=== PATIENT | male | born 1980 | race American Indian/Alaskan Native ===

== ENCOUNTER 2017-12-16 08:49 | Day surgery (SDC) | payer MEDICAID ==
[2017-12-16] MEDS ORDERED: MARCAINE 0.5% INFILTRATI ONE (10:20)
[2017-12-16] MEDS ORDERED: XYLOCAINE 1%/ EPI 1:100,000 INFILTRATI ONE (10:20)
[2017-12-16] MEDS ORDERED: DILAUDID IV PRN (10:26)
[2017-12-16] MEDS ORDERED: TORADOL IV PRN (10:26)
[2017-12-16] MEDS ORDERED: NARCAN 0.4 MG/1 ML IV PRN (10:26)
[2017-12-16] MEDS ORDERED: DEMEROL IV PRN (10:26)
[2017-12-16] MEDS ORDERED: PERCOCET 5/325 PO PRN (10:26)
[2017-12-16] MEDS ORDERED: ZOFRAN IV PRN (10:26)
--- NOTE | 2017-12-16 10:35 | Anesthesia Day of Surgery ---
Anesthesia Day of Surgery - Day of Surgery Patient Examined: Yes Patient H&P Reviewed: Yes Patient is NPO: Yes
--- NOTE | 2017-12-16 10:35 | Anesthesia Consultation ---
Anesthesia Consult and Med Hx Date of service: 12/16/17 - Airway Anesthetic Teeth Evaluation: Poor (missing several teeth), Chipped, Caps, Crowns ROM Head & Neck: Adequate Mental/Hyoid Distance: Adequate Mallampati Class: Class II Intubation Access Assessment: Probably Good - Pulmonary Exam CTA: Yes - Cardiac Exam Cardiac Exam: RRR - Pre-Operative Health Status ASA Pre-Surgery Classification: ASA3 Proposed Anesthetic Plan: General - Pulmonary Hx Smoking: Yes (marijuana) Hx Asthma: No - Cardiovascular System Hx Hypertension: Yes - Other Systems Hx Alcohol Use: Yes (occasional) Hx Substance Use: Yes (marijuana)
[2017-12-16] MEDS ORDERED: LACTATED RINGERS 1,000 ML IV SCH ×2 (11:00)
[2017-12-16] MEDS ORDERED: ANCEF/STERILE WATER 2 GM/20 ML IV NR (11:00)
[2017-12-16] MEDS ORDERED: DIPRIVAN 10 MG/ML IV ONE (11:13)
[2017-12-16] MEDS ORDERED: DECADRON ONE (11:14)
[2017-12-16] MEDS ORDERED: XYLOCAINE MPF 2% ONE (11:14)
[2017-12-16] MEDS ORDERED: ZOFRAN ONE (11:14)
[2017-12-16] MEDS ORDERED: DILAUDID ONE (11:15)
[2017-12-16] MEDS ORDERED: NACL 0.9% 1000 ML 1,000 ML IV SCH (11:30)
[2017-12-16 11:33] VITALS: BP 92/49
[2017-12-16 11:38] LABS: Calcium 6.9 mg/dL (8.4-10.2)
== END 2017-12-16 14:00 | disposition home or self-care (01) ==
LOC: OR 08:49
PROVIDERS: ATTEND Plastic Surgery
DX: I12.0 Hypertensive chronic kidney disease with stage 5 chronic kidney disease or end stage renal disease (principal); N18.6 End stage renal disease; G47.30 Sleep apnea, unspecified; K21.9 Gastro-esophageal reflux disease without esophagitis; D64.9 Anemia, unspecified; K58.9 Irritable bowel syndrome, unspecified; Z79.899 Other long term (current) drug therapy; Z99.2 Dependence on renal dialysis; Z72.89 Other problems related to lifestyle; Z88.5 Allergy status to narcotic agent; Z88.6 Allergy status to analgesic agent; Z91.041 Radiographic dye allergy status; Z87.891 Personal history of nicotine dependence; Z90.49 Acquired absence of other specified parts of digestive tract; Z98.890 Other specified postprocedural states; Z53.8 Procedure and treatment not carried out for other reasons
CPT/HCPCS: 36415; 80048; J7030; J7120; J1100; J1170; J2405; J2704